=== PATIENT | female | born 1960 | race African-American/Black ===

== ENCOUNTER 2019-10-04 07:29 | Observation (INO) ==
[2019-10-04] MEDS ORDERED: CeFAZolin Syr 2,000MG/20 ML 2,000 MG/20 ML SYRINGE IVPB ONE (07:59)
[2019-10-04] MEDS ORDERED: Ringers Solution, Lactated 1,000 ML IVC SCH ×2 (08:00→11:37)
[2019-10-04] MEDS ORDERED: Lidocaine -MPF 2% 2 ML VIAL ONE (08:04)
[2019-10-04] MEDS ORDERED: Dexamethasone 4 MG/ML VIAL ONE (08:04)
[2019-10-04] MEDS ORDERED: *HR* Midazolam HCl 2 MG/2 ML VIAL ONE (08:11)
[2019-10-04] MEDS ORDERED: *HR* FentaNYL (PF) 100 MCG/2 ML VIAL ONE (08:12)
[2019-10-04] MEDS ORDERED: Ropivacaine/PF 0.5% 30 ML VIAL ONE (08:12)
[2019-10-04] MEDS ORDERED: *HR* OxyCODONE Immed Rel 5 MG TABLET PO PRN (08:19)
[2019-10-04] MEDS ORDERED: Ondansetron 4 MG/2 ML VIAL IVP ONE (08:19)
[2019-10-04] MEDS ORDERED: *HR* Labetalol 20 MG/4 ML SYRINGE IVP PRN (08:19)
[2019-10-04] MEDS ORDERED: *HR* Promethazine 25 MG/ML VIAL IVP PRN ×2 (08:19→11:37)
[2019-10-04] MEDS ORDERED: Vancomycin 1,000 MG VIAL ONE (08:57)
[2019-10-04] MEDS ORDERED: Ethanol\\Acetic Acid\\Na Ace\\Ben 1,000 ML IRRIG.SOLN IR ONE (08:57)
[2019-10-04] MEDS ORDERED: Famotidine 20 MG/2 ML VIAL IVP ONE (09:00)
[2019-10-04] MEDS ORDERED: Celecoxib 200 MG CAPSULE PO ONE (09:00)
[2019-10-04] MEDS ORDERED: Acetaminophen IV 1,000 MG/100 ML INFUS..BTL IVPB ONE (09:00)
[2019-10-04] MEDS ORDERED: Total Joint Mixture (50 ml) INTRAART ONE (09:10)
[2019-10-04] MEDS ORDERED: EPHEDrine 50 MG/ML VIAL ONE (09:16)
[2019-10-04] MEDS ORDERED: Tranexamic Acid 1,000 MG/10 ML VIAL ONE (09:18)
[2019-10-04] MEDS ORDERED: *HR* PHENYLEPHRINE 1,000 MCG/10 ML SYRINGE IVP ONE (09:28)
[2019-10-04] MEDS ORDERED: *HR* Propofol 200 MG/20 ML VIAL IVP ONE (09:56)
[2019-10-04 10:44] LABS: Hematocrit 32.9 % (35.3-44.9); Hemoglobin 10.3 g/dL (11.5-15.4)
[2019-10-04] MEDS ORDERED: D5% in Water 1,000 ML IVC PRN (11:37)
[2019-10-04] MEDS ORDERED: MOM Conc 10 ML UD.LIQ PO PRN (11:37)
[2019-10-04] MEDS ORDERED: Ondansetron 4 MG/2 ML VIAL IVP PRN (11:37)
[2019-10-04] MEDS ORDERED: *HR* Dextrose 50 % in Water (Vial) 50 ML VIAL IVP PRN (11:37)
[2019-10-04] MEDS ORDERED: Naloxone 0.4 MG/ML INJ IVP PRN (11:37)
[2019-10-04] MEDS ORDERED: NON-FORMULARY MEDICATION 1 EACH EACH (Multivitamin [Multivitamins] 1 EACH) PO SCH (11:37)
[2019-10-04] MEDS ORDERED: HYDROcodone BIT/Homatropine 5 MG TABLET PO PRN (11:37)
[2019-10-04] MEDS ORDERED: Sennosides 8.6 MG TABLET PO PRN (11:37)
[2019-10-04] MEDS ORDERED: Dextrose Gel 15 GM/37.5 ML TUBE PO PRN ×2 (11:37)
[2019-10-04] MEDS ORDERED: Ascorbic Acid 500 MG TABLET PO SCH (11:37)
[2019-10-04] MEDS: *HR* OxyCODONE Immed Rel 5 MG TABLET PO PRN ×2 (14:49→20:58)
[2019-10-04] MEDS: *HR* Glimepiride 2 MG TABLET PO SCH (14:49)
[2019-10-04] MEDS: Multivit/Ca/Min/Fe/FA 1 TAB TABLET PO SCH (14:50)
[2019-10-04] MEDS: Metoprolol XL (24 HR) Succ 25 MG TAB.ER.24H PO SCH ×2 (14:50→16:07)
[2019-10-04] MEDS: Zinc Sulfate 220 MG CAPSULE PO SCH (14:50)
[2019-10-04] MEDS: Loratadine 10 MG TABLET PO SCH (14:50)
[2019-10-04] MEDS: *HR* Metformin 500 MG TABLET PO SCH ×2 (14:51→21:01)
[2019-10-04] MEDS: Ascorbic Acid 500 MG TABLET PO SCH (17:32)
[2019-10-04] MEDS: CeFAZolin 2 GM/120 ML BAG IVPB SCH (17:33)
[2019-10-04] MEDS: Insulin LISPRO 300 UNITS/3 ML VIAL SQ SCH ×3 (17:49→21:01)
[2019-10-05] MEDS: CeFAZolin 2 GM/120 ML BAG IVPB SCH (00:12)
[2019-10-05] MEDS: *HR* OxyCODONE Immed Rel 5 MG TABLET PO PRN ×4 (01:46→21:42)
[2019-10-05 07:14] LABS: Basophils % 0.1 %; Hematocrit 32.4 % (35.3-44.9); Hemoglobin 10.4 g/dL (11.5-15.4); Immature Granulocytes % 0.9 % (0-4); Mean Corpuscular HGB Conc 32.1 g/dL (31.6-35.5); Mean Corpuscular Hemoglobin 27.9 pg (28.0-33.3); Mean Corpuscular Volume 86.9 fL (83.0-100.0); Mean Platelet Volume 11.6 fL (9.4-12.4); Monocytes % 6.3 %; Neutrophils # 14.2 K/mcL (1.6-8.9); Platelet Count 270 K/mcL (140-400); Red Blood Count 3.73 M/mcL (3.82-4.97); Segmented Neutrophils % 86.7 %; White Blood Count 16.4 K/mcL (4.3-11.1)
[2019-10-05 07:29] LABS: Calcium 9.9 mg/dL (8.6-10.3); Potassium 4.4 mEq/L (3.5-5.1)
[2019-10-05] MEDS ORDERED: 0.9 % Sodium Chloride 500 ML IVC STA (09:14)
[2019-10-05] MEDS: Aspirin Enteric Coated 81 MG Tablet PO SCH ×2 (09:32→09:34)
[2019-10-05] MEDS: Ascorbic Acid 500 MG TABLET PO SCH ×2 (09:32→16:21)
[2019-10-05] MEDS: *HR* Glimepiride 2 MG TABLET PO SCH (09:32)
[2019-10-05] MEDS: Multivit/Ca/Min/Fe/FA 1 TAB TABLET PO SCH (09:32)
[2019-10-05] MEDS: Zinc Sulfate 220 MG CAPSULE PO SCH (09:32)
[2019-10-05] MEDS: *HR* Metformin 500 MG TABLET PO SCH ×2 (09:33→16:24)
[2019-10-05] MEDS: Loratadine 10 MG TABLET PO SCH (09:33)
[2019-10-05] MEDS: Metoprolol XL (24 HR) Succ 25 MG TAB.ER.24H PO SCH (09:33)
[2019-10-05] MEDS: Insulin LISPRO 300 UNITS/3 ML VIAL SQ SCH ×4 (09:37→21:44)
[2019-10-05 13:21] LABS: Calcium 9.5 mg/dL (8.6-10.3); Potassium 4.4 mEq/L (3.5-5.1)
[2019-10-05] MEDS ORDERED: 0.9 % Sodium Chloride 1,000 ML IVC ONE (13:33)
[2019-10-05] MEDS: 0.9 % Sodium Chloride 1,000 ML IVC SCH (15:17)
[2019-10-06] MEDS: *HR* OxyCODONE Immed Rel 5 MG TABLET PO PRN ×2 (01:42→09:05)
[2019-10-06] MEDS: 0.9 % Sodium Chloride 1,000 ML IVC SCH (04:48)
[2019-10-06 06:05] LABS: Basophils % 0.2 %; Eosinophils # 0.1 K/mcL (0.0-0.6); Eosinophils % 0.6 %; Hematocrit 29.1 % (35.3-44.9); Hemoglobin 9.7 g/dL (11.5-15.4); Lymphocytes # 1.5 K/mcL (0.6-4.6); Lymphocytes % 11.1 %; Mean Corpuscular HGB Conc 33.3 g/dL (31.6-35.5); Mean Corpuscular Hemoglobin 29.1 pg (28.0-33.3); Mean Corpuscular Volume 87.4 fL (83.0-100.0); Mean Platelet Volume 11.4 fL (9.4-12.4); Monocytes # 1.1 K/mcL (0.0-1.3); Monocytes % 8.4 %; Neutrophils # 10.6 K/mcL (1.6-8.9); Platelet Count 230 K/mcL (140-400); Red Blood Count 3.33 M/mcL (3.82-4.97); Red Cell Distribution Width 14.9 % (11.5-14.5); Segmented Neutrophils % 78.7 %; White Blood Count 13.5 K/mcL (4.3-11.1)
[2019-10-06 06:25] LABS: Calcium 9.1 mg/dL (8.6-10.3); Potassium 3.9 mEq/L (3.5-5.1)
[2019-10-06 06:50] VITALS: BP 177/95
[2019-10-06] MEDS: Zinc Sulfate 220 MG CAPSULE PO SCH (08:18)
[2019-10-06] MEDS: *HR* Glimepiride 2 MG TABLET PO SCH (08:18)
[2019-10-06] MEDS: Metoprolol XL (24 HR) Succ 25 MG TAB.ER.24H PO SCH (08:18)
[2019-10-06] MEDS: Loratadine 10 MG TABLET PO SCH (08:18)
[2019-10-06] MEDS: Aspirin Enteric Coated 81 MG Tablet PO SCH (08:21)
[2019-10-06] MEDS: Multivit/Ca/Min/Fe/FA 1 TAB TABLET PO SCH (08:21)
[2019-10-06] MEDS: *HR* Metformin 500 MG TABLET PO SCH (08:22)
[2019-10-06] MEDS: Ascorbic Acid 500 MG TABLET PO SCH (08:22)
[2019-10-06] MEDS: Insulin LISPRO 300 UNITS/3 ML VIAL SQ SCH (08:24)
== END 2019-10-06 10:43 | disposition home or self-care (01) ==
LOC: 3NENU 07:29 → SAMDAY 07:29 → 3NENU 11:37
PROVIDERS: ADMIT Orthopaedic Surgery; ATTEND Orthopaedic Surgery